=== PATIENT | female | born 1980 | race Caucasian/White ===

== ENCOUNTER 2024-05-11 10:17 | Emergency (ER) | payer MEDICAID, SELFPAY ==
[2024-05-11] MEDS ORDERED: Sodium Chloride 0.9% 10 ML Syringe FLUSH PRN (10:46)
[2024-05-11] MEDS: Aspirin 81 MG Tab.Chew PO ONE (11:01)
[2024-05-11 11:30] LABS: BASOPHILS ABSOLUTE AUTO 0.03 K/uL (0.02-0.10); BASOPHILS PERCENT AUTO 0.4 % (0.0-0.5); EOSINOPHILS PERCENT AUTO 2.4 % (1.0-5.0); HEMATOCRIT 40.9 % (37.0-47.0); HEMOGLOBIN 13.7 g/dL (11.5-16.5); LYMPHOCYTES ABSOLUTE AUTO 2.57 K/uL (1.50-4.00); LYMPHOCYTES PERCENT AUTO 30.5 % (20.0-40.0); MEAN CORPUSCULAR HEMOGLOBIN 29.7 pg (27.0-32.0); MEAN CORPUSCULAR HGB CONC 33.5 g/dL (31.0-35.0); MEAN CORPUSCULAR VOLUME 89 fL (76-96); MEAN PLATELET VOLUME 10.5 fL (6.0-10.0); MONOCYTES ABSOLUTE AUTO 0.51 K/uL (0.20-0.80); NEUTROPHILS ABSOLUTE AUTO 5.13 K/uL (2.00-7.50); NEUTROPHILS PERCENT AUTO 60.7 % (45.0-70.0); PLATELET COUNT,PLT 236 K/uL (150-500); RED BLOOD CELL COUNT 4.62 M/uL (3.80-5.80); RED CELL DISTRIBUTION WIDTH 13.4 % (11.0-16.0); WHITE BLOOD CELL COUNT,WBC 8.4 K/uL (4.0-11.0)
[2024-05-11 11:50] LABS: A/G RATIO 1.1 (0.8-2.0); ALBUMIN 3.6 g/dL (3.4-5.0); ANION GAP 13.9 mmol/L (5.0-15.0); BILIRUBIN TOTAL 1.1 mg/dL (0.0-1.0); BUN/CREATININE RATIO 13.5 (6-25); CARBON DIOXIDE,CO2 26.7 mmol/L (21.0-32.0); CREATININE 0.89 mg/dL (0.55-1.02); EST CRCL DRUG DOSING (CG) 74.73 mL/min; POTASSIUM,K 4.6 mmol/L (3.5-5.1); PROTEIN TOTAL,TP 6.8 g/dL (6.4-8.2)
== END 2024-05-11 13:47 | disposition home or self-care (01) ==
LOC: LB.ED 10:17
DX: R07.89 Other chest pain (principal)
CPT/HCPCS: 36415; 71046; 80053; 84484; 85025; 85379; 93005; 99285; A9270; 93010; 99283

== ENCOUNTER 2025-03-01 08:20 | Inpatient (IN) | payer MEDICAID ==
[2025-03-01 10:30] LABS: BASOPHILS ABSOLUTE AUTO 0.03 K/uL (0.02-0.10); BASOPHILS PERCENT AUTO 0.2 % (0.0-0.5); EOSINOPHILS ABSOLUTE AUTO 0.18 K/uL (0.04-0.40); EOSINOPHILS PERCENT AUTO 1.3 % (1.0-5.0); LYMPHOCYTES ABSOLUTE AUTO 2.87 K/uL (1.50-4.00); LYMPHOCYTES PERCENT AUTO 20.1 % (20.0-40.0); MEAN PLATELET VOLUME 10.2 fL (6.0-10.0); MONOCYTES ABSOLUTE AUTO 0.87 K/uL (0.20-0.80); MONOCYTES PERCENT AUTO 6.1 % (3.0-10.0); NEUTROPHILS ABSOLUTE AUTO 10.31 K/uL (2.00-7.50); NEUTROPHILS PERCENT AUTO 72.3 % (45.0-70.0); PLATELET COUNT,PLT 252 K/uL (150-500); RED BLOOD CELL COUNT 4.54 M/uL (3.80-5.80); RED CELL DISTRIBUTION WIDTH 13.6 % (11.0-16.0); WHITE BLOOD CELL COUNT,WBC 14.3 K/uL (4.0-11.0)
[2025-03-01 10:50] LABS: A/G RATIO 0.9 (0.8-2.0); ALANINE AMINOTRANSFERASE,ALT 28.0 U/L (12-78); ASPARTATE AMNIOTRANSFERASE,AST 10.0 U/L (15-37); BILIRUBIN TOTAL 1.0 mg/dL (0.0-1.0); BLOOD UREA NITROGEN,BUN 10.0 mg/dL (8-26); CARBON DIOXIDE,CO2 23.1 mmol/L (21.0-32.0); CHLORIDE,CL 104.0 mmol/L (98-107); CREATININE 0.95 mg/dL (0.55-1.02); EST CRCL DRUG DOSING (CG) 70.01 mL/min; ESTIMATED GFR 75.0 mL/min (>60); GLUCOSE RANDOM 111.0 mg/dL (74-100); POTASSIUM,K 3.8 mmol/L (3.5-5.1); PROTEIN TOTAL,TP 7.8 g/dL (6.4-8.2); SODIUM,NA 134.0 mmol/L (136-145)
[2025-03-01] MEDS ORDERED: Sodium Chloride 0.9% 10 ML Syringe FLUSH PRN (10:59)
[2025-03-01] MEDS: Ondansetron 4 MG/2 ML SDV IVPUSH PRN (12:23)
[2025-03-01] MEDS: Acetaminophen/HYDROcodone 325-5 MG Tab PO PRN (20:08)
[2025-03-02 07:47] LABS: MEAN PLATELET VOLUME 10.2 fL (6.0-10.0); PLATELET COUNT,PLT 236.0 K/uL (150-500); RED BLOOD CELL COUNT 4.08 M/uL (3.80-5.80); RED CELL DISTRIBUTION WIDTH 13.3 % (11.0-16.0); WHITE BLOOD CELL COUNT,WBC 11.2 K/uL (4.0-11.0)
[2025-03-02 08:09] LABS: BLOOD UREA NITROGEN,BUN 10.0 mg/dL (8-26); CARBON DIOXIDE,CO2 23.8 mmol/L (21.0-32.0); CHLORIDE,CL 104.0 mmol/L (98-107); CREATININE 1.02 mg/dL (0.55-1.02); EST CRCL DRUG DOSING (CG) 65.2 mL/min; ESTIMATED GFR 69.0 mL/min (>60); GLUCOSE RANDOM 117.0 mg/dL (74-100); POTASSIUM,K 3.8 mmol/L (3.5-5.1); SODIUM,NA 139.0 mmol/L (136-145)
[2025-03-03 08:40] LABS: MEAN PLATELET VOLUME 10.6 fL (6.0-10.0); PLATELET COUNT,PLT 267.0 K/uL (150-500); RED BLOOD CELL COUNT 3.94 M/uL (3.80-5.80); RED CELL DISTRIBUTION WIDTH 13.0 % (11.0-16.0); WHITE BLOOD CELL COUNT,WBC 9.5 K/uL (4.0-11.0)
[2025-03-03 08:55] LABS: BLOOD UREA NITROGEN,BUN 6.0 mg/dL (8-26); CARBON DIOXIDE,CO2 25.4 mmol/L (21.0-32.0); CHLORIDE,CL 103.0 mmol/L (98-107); CREATININE 0.94 mg/dL (0.55-1.02); EST CRCL DRUG DOSING (CG) 70.75 mL/min; ESTIMATED GFR 76.0 mL/min (>60); GLUCOSE RANDOM 94.0 mg/dL (74-100); POTASSIUM,K 3.8 mmol/L (3.5-5.1); SODIUM,NA 137.0 mmol/L (136-145)
== END 2025-03-04 10:35 | disposition home or self-care (01) | DRG 392 ==
LOC: LB.ED 08:20 → LB.MS 11:54 → OBSVTOIN 03-03 15:19
PROVIDERS: ADMIT Nurse Practitioner Family; ATTEND Nurse Practitioner Family
DX: K57.32 Diverticulitis of large intestine without perforation or abscess without bleeding (principal); I10 Essential (primary) hypertension; E86.0 Dehydration; D72.829 Elevated white blood cell count, unspecified; K80.20 Calculus of gallbladder without cholecystitis without obstruction; Z90.49 Acquired absence of other specified parts of digestive tract; Z98.890 Other specified postprocedural states; Z79.899 Other long term (current) drug therapy; Z98.891 History of uterine scar from previous surgery
CPT/HCPCS: 36415; 74176; 80048; 80053; 83605; 83690; 85025; 85027; 96365; 96366; 96375; 96376; 99222; 99231; 99232; 99238; 99285-25; A9270-GY; G0378; J1171; J2405; J2543; J7030